=== PATIENT | female | born 1950 | race Caucasian/White ===

== ENCOUNTER 2017-07-19 05:39 | Day surgery (SDC) | payer OTHER ==
--- NOTE | 2017-07-15 17:26 | GHP ---
[f rep st] HISTORY AND PHYSICAL CHIEF COMPLAINT: Right shoulder pain. HISTORY OF PRESENT ILLNESS: The patient is a 67-year-old who has had right shoulder pain. has undergone a right shoulder scope in 2000 with rotator cuff repair, however, over the last year has developed recurrence of shoulder pain with no inciting injury th at can surgery x2 and surgery x1. SOCIAL HISTORY: is a former smoker. is a social drinker. PHYSICAL EXAMINATION: HEENT: Pupils are equal, round, and reactive to light. CHEST: Clear to ausc ultation. HEART: Regular rate and rhythm. ABDOMEN: Soft and nontender. MUSCULOSKELETAL: Right s houlder with good range of motion with weakness to external rotation in the anterior deltoid, suprasp inatus and Speed testing. bicipital groove, greater tuberosity. MRI revealed possibility of rotator cuff tear secondary to fluid in subacromial space with a superior labral tear, grade 2 chondral changes the glenoid and humeral head. ASSESSMENT AND PLAN: Patient is status post right shoulder impingement syndrome. Possible recurrent rotator cuff tear taken to the operating room to undergo a right shoulder scope with ____ level debridement and repair. /[id number]/MODL
[~2017-07-19 05:39] MED LIST: ceFAZolin 2 GM/SWFI 2 GM/20 ML SYR IVP ONE
[2017-07-19] MEDS ORDERED: LR 1,000 ML IV ONE (05:57)
[2017-07-19] MEDS ORDERED: ceFAZolin 2 GM/SWFI 20 ML SYR IVP ONE (06:18)
[2017-07-19] MEDS ORDERED: MIDAZOLAM 2 MG/2 ML VIAL IVP ONE (06:55)
[2017-07-19] MEDS ORDERED: BUPIVACAINE/EPI 0.5% 30 ML SDV ONE ×2 (06:57→07:09)
[2017-07-19] MEDS ORDERED: EPINEPHrine 30 MG/30 ML MDV (0.1 MG/0.1 ML) ONE (06:57)
--- NOTE | 2017-07-19 06:58 | PDANEPAE ---
ANE Past Medical History - Cardiovascular History Hx Hypertension: No Hx Arrhythmias: No Hx Chest Pain: No Hx Coronary Artery / Peripheral Vascular Disease: No Hx CHF / Valvular Disease: No Hx Palpitations: No - Pulmonary History Hx COPD: No Hx Asthma/Reactive Airway Disease: No Hx Recent Upper Respiratory Infection: No Hx Oxygen in Use at Home: No Hx Sleep Apnea: No Sleep Apnea Screening Result - Last Documented: Negative - Neurologic History Hx Cerebrovascular Accident: No Hx Seizures: No Hx Dementia: No - Endocrine History Hx Diabetes: No - Renal History Hx Renal Disorders: No - Liver History Hx Hepatic Disorders: No - Neurological & Psychiatric Hx Hx Neurological and Psychiatric Disorders: Yes Neurological / Psychiatric History Comment: MIGRAINES - Cancer History Hx Cancer: No - Congenital Disorder History Hx Congenital Disorders: No - GI History Hx Gastrointestinal Disorders: Yes Gastrointestinal History Comment: HEARTBURN USES OTC - Chronic Pain History Chronic Pain: Yes (RT SHLDR) - Surgical History Prior Surgeries: HYSTERECTOMY WITH BSO. RT SHLDR RTC. REMVL LIPOMA RT LEG. DIAG LAP ANE Review of Systems Review of Systems: - Exercise capacity METS (RN): 4 METS ANE Patient History - Allergies Allergies/Adverse Reactions: No Known Allergies Allergy (Unverified 07/12/17 11:40) - Home Medications Home Medications: Aspirin DAILY 07/12/17 [Last Taken 07/12/17] Fiorinal 50-325-40 mg Cap PRN 07/12/17 [Last Taken Unknown] Fish Oil 1,000 mg Softgel DAILY 07/12/17 [Last Taken 07/12/17] Herbals/Supplements -Info Only DAILY 07/12/17 [Last Taken 07/18/17] Claritin-D 12 Hour Tablet 07/19/17 [Last Taken 07/18/17] Zantac 07/19/17 [Last Taken 07/19/17] - NPO status NPO Since - Liquids (Date): 07/19/17 NPO Since - Liquids (Time): 05:40 NPO Since - Solids (Date): 07/18/17 NPO Since - Solids (Time): 18:00 - Anes Hx Anes Hx: post operative nausea and vomiting - Smoking Hx Smoking Status: Former smoker ANE Labs/Vital Signs - Vital Signs Blood Pressure: 143/90 Heart Rate: 76 Respiratory Rate: 16 O2 Sat (%): 93 Height: 154.94 cm Weight: 67.132 kg ANE Physical Exam - Airway Neck exam: FROM Mouth exam: normal dental/mouth exam - Pulmonary Pulmonary: no respiratory distress, no rales or rhonchi, clear to auscultation - Cardiovascular Cardiovascular: regular rate and rhythym, no murmur, rub, or gallop - ASA Status ASA Status: II ANE Anesthesia Plan Anesthesia Plan: GA w LMA Regional Anesthesia: interscalene BP NB
[2017-07-19] MEDS ORDERED: DEXAMETHASONE 4 MG/ML VIAL ONE ×2 (07:16)
[2017-07-19] MEDS ORDERED: LIDOCAINE 2% 5 ML SDV ONE ×3 (07:16)
[2017-07-19] MEDS ORDERED: ONDANSETRON 4 MG/2 ML VIAL ONE ×2 (07:16→09:46)
[2017-07-19] MEDS ORDERED: fentaNYL 100 MCG/2 ML INJ ONE (07:16)
[2017-07-19] MEDS ORDERED: PROPOFOL 200 MG/20 ML VIAL ONE ×2 (07:16→08:47)
[2017-07-19] MEDS ORDERED: LIDOCAINE 2% JELLY 5 ML TUBE ONE (07:16)
--- NOTE | 2017-07-19 07:19 | PDHPUP ---
History & Physical Update H&P update statement: This history and physical update is based on an assessment of the patient which was completed after admission or registration (within 24 hours), but prior to the surgery/procedure. H&P update: H&P reviewed & patient examined, no change in patient's condition since H&P completed
[2017-07-19] MEDS ORDERED: THROMBIN (BOVINE) 5,000 UNIT VIAL TP ONE (08:37)
[2017-07-19] MEDS ORDERED: CALCIUM CHLORIDE 1 GM/10 ML INJ ONE (08:37)
[2017-07-19] MEDS ORDERED: oxyCODONE IR 5 MG TAB PO PRN (09:05)
[2017-07-19] MEDS ORDERED: ONDANSETRON 4 MG/2 ML VIAL IVP PRN (09:05)
[2017-07-19] MEDS ORDERED: NALOXONE HCL 0.4 MG/ML INJ IVP PRN (09:05)
[2017-07-19] MEDS ORDERED: MEPERIDINE 25 MG/ML SYR IVP PRN (09:05)
[2017-07-19] MEDS ORDERED: LR 500 ML IV PRN (09:05)
[2017-07-19] MEDS ORDERED: HYDROCODONE/APAP 5/325 TAB PO PRN (09:05)
[2017-07-19] MEDS ORDERED: fentaNYL 100 MCG/2 ML INJ IVP PRN (09:05)
[2017-07-19] MEDS ORDERED: ACETAMINOPHEN 500 MG TAB PO PRN (09:05)
[2017-07-19] MEDS ORDERED: OXYCODONE/APAP 5/325 TAB PO PRN (09:16)
[2017-07-19] MEDS ORDERED: HYDROmorphONE/DILAUDID 1 MG/ML INJ IVP PRN (09:16)
--- NOTE | 2017-07-19 09:16 | POSTOPPROG ---
Post Op Note Date of Operation: 07/19/17 Surgeon: Jadyn Cortés Machine Candle Molder: tesha Anesthesiologist: renetta Anesthesia: LMA, Other (Specify) Pre-op Diagnosis: r rct with impingement and labral tear Procedure: r shoulder scope with rcr/sad/dce/debride labrum,rc,bicep Inf/Abcess present in the surg proc area at time of surgery?: No Depth: Deep Incisional (Fascial) EBL: 50-100
[2017-07-19] MEDS ORDERED: PROMETHAZINE HCL 25 MG/ML INJ ONE (10:03)
[2017-07-19] MEDS: PROMETHAZINE HCL 25 MG/ML INJ IVP PRN ×2 (10:06→10:13)
--- NOTE | 2017-07-19 10:16 | POSTANESTH ---
Post Anesthetic Evaluation Cardiovascular Status: Normal, Stable, Similar to Pre-Op Cond Respiratory Status: Normal, Stable, Similar to Pre-op Cond. Level of Consciousness/Mental Status: Can Participate in Eval, Mildly Sleepy, Arousable Pain Control: Adequate, Prn Tx Ordered Nausea/Vomiting Control: Adequate, Prn Tx Ordered Complications Possibly Related to Anesthesia: None Noted
--- NOTE | 2017-07-19 10:35 | GOP ---
[f rep st] OPERATIVE REPORT DATE OF OPERATION: 07/19/2017 SURGEON: Jadyn Cortés MD NEUROSURGEON: Dr. Jadyn Cortés. MANAGER DATABASE ADMINISTRATION: Wale Carrera, certified SA, whose presence was medically necessary. ANESTHESIA: Via LMA plus scalene nerve block per surgeon's request. PREOPERATIVE DIAGNOSIS: Right shoulder impingement syndrome with rotator cuff tear. POSTOPERATIVE DIAGNOSIS: Right shoulder impingement syndrome with rotator cuff tear with labral tear . PROCEDURE PERFORMED: Right shoulder arthroscopy with rotator cuff repair x1, subacromial decompressi on, distal clavicle excision, debridement of rotator cuff, labrum, and biceps anchor. FINDINGS: INDICATIONS: This is a 67-year-old female who had previously undergone a right rotator cuff repair w ho has developed increasing pain and weakness into the right shoulder. MRI revealed a significant an terior acromial curve, as well as possibility of a rotator cuff tear. She wishes to have surgery in order to resolve the problem. DESCRIPTION OF PROCEDURE: Patient was brought into the operating room after the right side had been identified as the correct side by the patient, nurse, and physician. Once in the operating room, she was given a scalene block on the right side and then placed under general anesthesia using an LMA. Once asleep, she was placed in the beach chair position with the right upper extremity sterilely prep ped and draped in the usual fashion using GSI solution. Once prepped and draped, incision was made o azra the posterolateral corner of the acromion with the camera introduced without difficulty. Inspect ion of the joint revealed grade 3-4 chondral changes to the glenoid and to the humerus with extensive tearing of the posterior, superior, inferior, and anterior portions of the labrum. There was a grea t deal of fraying of the rotator cuff with exposed suture noted. Therefore, using an in-to-out techn ique, an anterior portal was made superolateral to the coracoid process with a 6 x 75 mm threaded can nula placed through the anterior portal. A 3.5 mm smooth shaver was used to debride and debulk the s uperior, inferior, anterior, and posterior portions of the labrum, as well as the frayed portion of t he rotator cuff. Once completed, the instruments were removed from the glenohumeral joint and reintr oduced into the subacromial space. A third incision was made 3 cm lateral to the acromial process in line with the posterior cortex of the clavicle with the camera switched to the lateral portal, and a lternatingly, using arthroscopic Bovie tip and a shaver, were used to remove the abundant amount of s oft tissue within the subacromial space. She was noted to have a short, sharp inferior spur, and thi s was removed using an Acromionizer bur until achieving a flat ceiling. Attention was turned to the distal clavicle, which was also noted to have an inferior spur, and this was also removed using combi [place] of shaver and bur. Once completed, attention was turned back to the rotator cuff. She was no cm to have a tear in the midportion of the supraspinatus that had pulled off the bone. Therefore, u sing combination of an arthroscopic Bovie tip and a shaver, were used to remove the soft tissue from the footprint of the greater tuberosity. Acromionizer bur was brought through the lateral portal and used to eburnate the bone in that area in order to gain a raw bleeding surface. A #2 FiberWire was then woven into the anterior and posterior portions of the rotator cuff, and it was pulled taut, pull ing the rotator cuff onto the eburnated bone, and a [place] anchor was driven into the bone, holding the rotator cuff in place onto the eburnated bone. Once completed, all instruments were removed from the shoulder with 30 cc of Marcaine infused in the subacromial space. The 3 portal sites were close d using 3-0 nylon suture in a [id number]-type stitch. Plasma Gel was injected into the subacrom ial space. The wounds were then dressed with Xeroform, 4 x 4, and Tegaderm. She was completely undr aped in the operating room, had a shoulder immobilizer placed on the right upper extremity. She was then woken up, extubated, transferred onto a stretcher, and sent to recovery room in good condition. /[id number]/MODL
[2017-07-19 12:24] VITALS: BP 120/68
== END 2017-07-19 12:20 | disposition home or self-care (01) ==
LOC: FSGY 05:39
PROVIDERS: ATTEND Orthopaedic Surgery
PROC: 3E0U3GC Introduction of Other Therapeutic Substance into Joints, Percutaneous Approach (ICD-10-PCS; principal; 2017-07-19 07:15)
PROC: 0RBJ4ZZ Excision of Right Shoulder Joint, Percutaneous Endoscopic Approach (ICD-10-PCS; principal; 2017-07-19 07:15)
PROC: 0PB94ZZ Excision of Right Clavicle, Percutaneous Endoscopic Approach (ICD-10-PCS; principal; 2017-07-19 07:15)
PROC: 0LQ14ZZ Repair Right Shoulder Tendon, Percutaneous Endoscopic Approach (ICD-10-PCS; principal; 2017-07-19 07:15)
PROC: 0MB14ZZ Excision of Right Shoulder Bursa and Ligament, Percutaneous Endoscopic Approach (ICD-10-PCS; principal; 2017-07-19 07:15)
DX: M75.101 Unspecified rotator cuff tear or rupture of right shoulder, not specified as traumatic (principal); M75.41 Impingement syndrome of right shoulder; M24.111 Other articular cartilage disorders, right shoulder; M25.711 Osteophyte, right shoulder; Z87.891 Personal history of nicotine dependence
CPT/HCPCS: 0232T; 29824; 29826; 29827; C1713; J0171; J0690; J1100; J1200; J2250; J2405; J2550; J2704; J3010

== ENCOUNTER 2017-09-08 14:04 | Emergency (ER) | payer OTHER ==
--- NOTE | 2017-09-08 14:49 | EDPHY ---
H & P Time Seen by Provider: 09/08/17 14:25 HPI/ROS: CHIEF COMPLAINT: Left ankle pain HISTORY OF PRESENT ILLNESS: 67-year-old female arrives via private vehicle complaining of acute left ankle pain after she was in her yd and became tangled up with her dogs and rolled her foot and fell to the ground. No other injury beyond her ankle. She notes that her ankle was pointing in abnormal direction and she self reduced it. The fire department arrived, splinted the area and she self transported with her to [place] from [place] because Dr. Jadyn Cortés has performed surgery on her shoulder previously. She denies: Fall from height, calcaneus pain, proximal tibia or fibula pain, fibular head pain, knee injury or pain, head injury. PHYSICAL EXAM (Prior to examination, patient consented to physical exam, hands were washed and my usual and customary physical exam procedures followed) 1) GENERAL: Well-developed, well-nourished, alert and oriented. Appears to be in no acute distress. 2) HEAD: Normocephalic 3) HEENT: Pupils equal, round, reactive to light bilaterally. 4) LUNGS: Breathing comfortably. 5) MUSCULOSKELETAL: Soft tissue swelling to the ankle noted with associated tenderness. No tenting of tissue. proximal tibia and fibula nontender .5th MT nontender negative Powers test, compartments soft 6) SKIN: ecchymosis noted. Skin Intact. No tenting. 7) VASCULAR: DP,PT pulses and cap refill present and brisk DIFFERENTIAL DIAGNOSIS: in no particular order including but not limited to fracture, sprain, compartment syndrome Procedure: Crutches indications for crutch use discussed with patient. Patient fitted for crutches by ER staff. Observed ambulating with crutches. I think the patient has the capacity to safely use crutches. Usual and customary crutch walking precautions provided Procedure: Splint A [address] way Ortho Glass above the knee splint was applied by ER electronic bench technician. After application of the splint I returned and re-examined the patient. The splint was adequately immobilizing the joint and distal to the splint the patient's circulation and sensation were intact. Patient shows no signs of compartment syndrome. Was given orthopedic precautions. Smoking Status: Former smoker Constitutional: Initial Vital Signs Temperature (C) 36.6 C 09/08/17 14:07 Heart Rate 106 H 09/08/17 14:07 Respiratory Rate 16 09/08/17 14:07 Blood Pressure 128/99 H 09/08/17 14:07 O2 Sat (%) 97 09/08/17 14:07 O2 Delivery Mode Room Air Allergies/Adverse Reactions: No Known Allergies Allergy (Unverified 07/12/17 11:40) Home Medications: Medication Instructions Recorded Aspirin DAILY 07/12/17 Fiorinal 50-325-40 mg Cap PRN 07/12/17 Fish Oil 1,000 mg Softgel DAILY 07/12/17 Herbals/Supplements -Info Only DAILY 07/12/17 Claritin-D 12 Hour Tablet 07/19/17 Zantac 07/19/17 Hydrocodone/APAP 5/325 [[place] 1 tab PO Q6 PRN #7 tab 09/08/17 5/325 (RX)] Ibuprofen [Motrin (*)] 600 mg PO Q6 #15 tab 09/08/17 Ondansetron Odt [Zofran Odt] 4 mg PO Q4PRN PRN #10 tab 09/08/17 MDM/Departure - MDM Imaging Results: Imaging Impressions Ankle X-Ray 09/08/17 14:09 Impression: 1. Trimalleolar fracture with lateral displacement by about 5 mm. Images reviewed myself ED Course/Re-evaluation: Re-evaluation with serial examinations. Patient is neurovascular intact no evidence of compartment syndrome. She has been informed that she is at risk of this. The importance of follow-up with orthopedics has been stressed on numerous instances. She is neurovascularly intact. She feels comfortable being discharged. She has been observed crutch walking with success and she would like to be discharged home. She will plan on following up with Dr. Alonso Mayberry. I saw this patient independently based on established practice protocols. Care of patient under supervision of secondary supervising physician Dr Candelario with whom I discussed case. - Depart Disposition: Home, Routine, Self-Care Clinical Impression: Trimalleolar fracture of left ankle Qualifiers: Encounter type: initial encounter Fracture type: closed Qualified Code(s): S82.852A - Displaced trimalleolar fracture of left lower leg, initial encounter for closed fracture Condition: Good Instructions: Ankle Fracture (ED) Additional Instructions: Return to the ER immediately if you experience discoloration, have worsening pain, numbness, tingling, or any other symptoms that concern you. If you received x-rays in the emergency department today, be advised, that ligamentous , tendon, muscular, and other non-bony injury cannot be fully ruled out. Try to keep your affected extremity elevated above the level of your chest, and keep cold packs on the affected area, for the next 48 hours. Prescriptions: Hydrocodone/APAP 5/325 [[place] 5/325 (RX)] 1 tab PO Q6 PRN #7 tab PRN Reason: Pain, Severe Ibuprofen [Motrin (*)] 600 mg PO Q6 #15 tab Ondansetron Odt [Zofran Odt] 4 mg PO Q4PRN PRN #10 tab PRN Reason: Nausea Referrals: Alonso Mayberry MD [Medical Doctor] - 2-3 days, call for appt.
[2017-09-08 15:32] VITALS: BP 156/94
== END 2017-09-08 15:28 | disposition home or self-care (01) ==
DX: S82.852A Displaced trimalleolar fracture of left lower leg, initial encounter for closed fracture (principal); Z79.82 Long term (current) use of aspirin; Z87.891 Personal history of nicotine dependence; X50.9XXA Other and unspecified overexertion or strenuous movements or postures, initial encounter; Y92.007 Garden or yard of unspecified non-institutional (private) residence as the place of occurrence of the external cause; Y99.8 Other external cause status; Y93.89 Activity, other specified

== ENCOUNTER 2017-09-09 12:49 | Emergency (ER) | payer OTHER ==
--- NOTE | 2017-09-09 13:43 | EDPHY ---
HPI/HX/ROS/PE/MDM Narrative: CHIEF COMPLAINT: Recent ankle fracture; "They gave me [place] which made me sick. They gave me Zofran, which didn't work. The pain is just killing me." HPI: The patient is a 67 y/o female returning to the ED with her following a right trimalleolar fracture yesterday complaining of uncontrolled pain and vomiting. She has taken 4 pills of [place] for pain and her most recent dose was 07:00 this morning. She felt nauseated after this and has not taken another dose today due to vomiting, which was not improved by Zofran. She now has a generalized headache and complains of a lot of discomfort around the splint with tingling in her right toes. She has a follow up appointment with Dr. Mayberry, orthopedist, on Tuesday morning 3 days from now. She has previously used Demerol after shoulder surgeries with good control of pain and is here requesting pain relief primarily. REVIEW OF SYSTEMS: Aside from elements discussed in the HPI, a comprehensive 10-point review of systems was reviewed and is negative. PMH: Shoulder surgery with Dr. Cortés SOCIAL HISTORY: at bedside. Lives in [place]. Employed. Prior medical history reviewed including ED visit yesterday 09/08/17 for trimalleolar fracture. PHYSICAL EXAM: General:Patient is alert, appears uncomfortable. ENT:Eyes are normal to inspection. ENT inspection normal. Neck: Normal inspection. Full range of motion. Respiratory:No respiratory distress. Breath sounds normal bilaterally. Cardiovascular: Regular rate and rhythm. Strong peripheral pulses. Normal cap refill. Abdomen:The abdomen is nontender to palpation. There are no peritoneal signs. Back: Normal to inspection. No tenderness to palpation. Skin: Normal color. No rash. Warm and dry. Extremities: Right foot and ankle in long leg posterior/stirrup splint, good CMS in toes. Otherwise normal appearance and full range of motion. Neuro: Oriented x3. Normal motor function. Normal sensory function. ED Course: This is a 67 y/o female who presents with uncontrolled pain despite [place] and subsequent vomiting following a right trimalleolar fracture yesterday. She appears uncomfortable on exam and complains of splint discomfort with tingling in her toes. She currently has a long leg posterior and stirrup splint on. Plan for pain management and removal of splint for both pain control and better exam of leg. IV placed. 1L IV NS, 4mg IV Zofran, and 0.5mg IV Dilaudid ordered. Splint taken down. CMS is intact and the patient is much more comfortable now. Patient is continuing to have pain. 0.5mg IV Dilaudid ordered. Plan for splint replacement. MDM: This patient presents with severe post-fracture pain. I evaluated her extensively and see no signs of compartment syndrome or acute DVT. We were able to achieve good pain control with dilaudid and Zofran, and have reconstructed her splint to make it more comfortable. She has an appointment with her orthopedist tomorrow. She is comfortable with plan for discharge. - Data Points Medications Given: Discontinued Medications Hydromorphone HCl (Dilaudid) 0.5 mg IVP EDNOW ONE Stop: 09/09/17 13:55 Last Admin: 09/09/17 14:21 Dose: 0.5 mg Sodium Chloride (Ns) 1,000 mls @ 0 mls/hr IV EDNOW ONE; Wide Open PRN Reason: Protocol Stop: 09/09/17 13:55 Last Admin: 09/09/17 14:20 Dose: 1,000 mls Ondansetron HCl (Zofran) 4 mg IVP EDNOW ONE Stop: 09/09/17 13:55 Last Admin: 09/09/17 14:21 Dose: 4 mg General Time Seen by Provider: 09/09/17 13:18 Initial Vital Signs: Initial Vital Signs Temperature (C) 36.7 C 09/09/17 12:57 Heart Rate 88 09/09/17 12:57 Respiratory Rate 18 09/09/17 12:57 Blood Pressure 125/93 H 09/09/17 12:57 O2 Sat (%) 97 09/09/17 12:57 O2 Delivery Mode Room Air O2 (L/minute) 2 Allergies/Adverse Reactions: No Known Allergies Allergy (Verified 09/09/17 12:56) Home Medications: Medication Instructions Recorded Aspirin DAILY 07/12/17 Fiorinal 50-325-40 mg Cap PRN 07/12/17 Fish Oil 1,000 mg Softgel DAILY 07/12/17 Herbals/Supplements -Info Only DAILY 07/12/17 Claritin-D 12 Hour Tablet 07/19/17 Zantac 07/19/17 Hydrocodone/APAP 5/325 [[place] 1 tab PO Q6 PRN #7 tab 09/08/17 5/325 (RX)] Ibuprofen [Motrin (*)] 600 mg PO Q6 #15 tab 09/08/17 Ondansetron Odt [Zofran Odt] 4 mg PO Q4PRN PRN #10 tab 09/08/17 HYDROmorphone HCL [Dilaudid 2 mg 2 mg PO Q6H #20 tab 09/09/17 (*)] Departure - Departure Disposition: Home, Routine, Self-Care Clinical Impression: Trimalleolar fracture Condition: Good Instructions: Hydromorphone (By mouth), Ankle Fracture (ED) Additional Instructions: 1. Use Dilaudid as prescribed as needed for severe pain. This medication can make you drowsy and constipated. Take appropriate precautions. 2. Keep splint clean, dry, and in place until follow up with orthopedist. Use crutches, do not bear weight. 3. Keep appointment with your orthopedist next week. 4. Return to the ED for severe pain, weakness or numbness in your toes, fever, or other worsening of condition. Referrals: Kaykay Greene MD [Primary Care Provider] - As per Instructions Alonso Mayberry MD [Medical Doctor] - As per Instructions Prescriptions: HYDROmorphone HCL [Dilaudid 2 mg (*)] 2 mg PO Q6H #20 tab Report Scribed for: Jam [place] Report Scribed by: Teresa Nino Date of Report: 09/09/17 Time of Report: 13:43 Physician Review and Approval Statement: Portions of this note were transcribed by an ED scribe. I personally performed the history, physical exam, and medical decision making; and confirm the accuracy of the information in the transcribed note.
[2017-09-09] MEDS ORDERED: NS 1,000 ML IV ONE (13:54)
[2017-09-09] MEDS ORDERED: ONDANSETRON 4 MG/2 ML VIAL IVP ONE (13:54)
[2017-09-09] MEDS ORDERED: HYDROmorphONE/DILAUDID 2 MG/ML INJ IVP ONE ×2 (13:54→15:13)
[2017-09-09 16:25] VITALS: BP 152/93
== END 2017-09-09 16:24 | disposition home or self-care (01) ==
DX: S82.851D Displaced trimalleolar fracture of right lower leg, subsequent encounter for closed fracture with routine healing (principal); E86.9 Volume depletion, unspecified; Z79.82 Long term (current) use of aspirin; X58.XXXD Exposure to other specified factors, subsequent encounter
CPT/HCPCS: 96361; 96374; 96375; 96376; 99284; J1170; J2405

== ENCOUNTER → 2017-10-13 | Outpatient (CLI) | payer OTHER | LOC: FIMAGING 16:01 | PROVIDERS: ATTEND Physician Assistant | DX: M79.661 Pain in right lower leg (principal); M79.89 Other specified soft tissue disorders ==